=== PATIENT | female | born 1970 | race Caucasian/White ===

== ENCOUNTER 2020-03-01 03:17 | Emergency (ER) | payer BC, OTHER ==
[~2020-03-01] VITALS: Ht 162.6 cm; Wt 74.8 kg
[~2020-03-01 03:17] MED LIST: IBUPROFEN 600600 M1 PO; PHENTERMINE H37.5 MG PO; TOPAMAX 25 MG T25 M1 PO
[2020-03-01 03:48] LABS: MCHC 33.1 g/dL (28.0-37.0); NUCLEATED RBCS 0 /100WBC; WBC 2.1 thou/uL (4.0-11.0)
[2020-03-01 03:50] LABS: ABSOLUTE MONOCYTES 0.1 thou/uL (0.0-1.2); BASOPHILS 0.5 %; EOSINOPHILS 0.1 %; HEMATOCRIT 34.1 % (37.0-47.0); HEMOGLOBIN 11.3 gm/dL (12.0-15.0); LYMPHOCYTES 49.4 %; MCH 27.9 pg (26.0-34.0); MCV 84.2 fL (80.0-100.0); MONOCYTES 4.9 %; MPV 7.7 fl. (7.2-11.1); PLATELET COUNT* 139 thou/uL (150-400); POLYS 45.1 %; RBC 4.06 mil/uL (4.20-5.00); RDW-CV 12.7 % (10.5-14.5)
[2020-03-01 03:58] LABS: APTT 31.8 Seconds (25.0-31.3); CALCIUM 7.5 mg/dL (8.5-10.1); CREATININE 0.6 mg/dL (0.6-1.3); INR 0.9; POTASSIUM 3.5 mmol/L (3.5-5.1)
[2020-03-01 04:08] LABS: ALBUMIN 3.5 g/dL (3.4-5.0); TOTAL BILIRUBIN 0.1 mg/dL (<0.1-1.0); TOTAL PROTEIN 6.6 g/dL (6.4-8.2)
[2020-03-01] MEDS ORDERED: ZOFRAN ODT4 MG PO (05:27)
[2020-03-01 06:35] VITALS: BP 94/55
== END 2020-03-01 06:35 | disposition home or self-care (01) ==
LOC: M.ERS 03:17
PROVIDERS: Personal Emergency Response Attendant
DX: U07.1 COVID-19 (principal); R11.0 Nausea; R07.9 Chest pain, unspecified

== ENCOUNTER 2020-03-04 17:10 | Inpatient (IN) | payer OTHER, BC ==
[~2020-03-04] VITALS: Ht 165.1 cm; Wt 80.3 kg
[~2020-03-04 17:10] MED LIST changes: +ZOFRAN ODT4 MG PO
[2020-03-04 17:31] VITALS: BP 86/51
[2020-03-04 17:35] LABS: ABSOLUTE LYMPHOCYTES 1.7 thou/uL (0.8-5.3); ABSOLUTE MONOCYTES 0.4 thou/uL (0.0-1.2); ABSOLUTE NEUTROPHILS 2.9 thou/uL (1.6-8.1); BASOPHILS 0.2 %; EOSINOPHILS 0.3 %; HEMATOCRIT 32.8 % (37.0-47.0); HEMOGLOBIN 10.8 gm/dL (12.0-15.0); LYMPHOCYTES 33.4 %; MCV 84.8 fL (80.0-100.0); MONOCYTES 8.3 %; MPV 7.4 fl. (7.2-11.1); NUCLEATED RBCS 0 /100WBC; PLATELET COUNT* 235 thou/uL (150-400); POLYS 57.8 %; RBC 3.87 mil/uL (4.20-5.00); RDW-CV 12.6 % (10.5-14.5); WBC 5.1 thou/uL (4.0-11.0)
[2020-03-04 17:50] LABS: APTT 28.5 Seconds (25.0-31.3); CALCIUM 8.2 mg/dL (8.5-10.1); CREATININE 0.7 mg/dL (0.6-1.3); POTASSIUM 3.4 mmol/L (3.5-5.1); PROTIME 9.7 Seconds (9.20-11.50)
[2020-03-04 17:54] LABS: INR < 0.9
[2020-03-04 18:01] LABS: ALBUMIN 3.1 g/dL (3.4-5.0); TOTAL BILIRUBIN 0.3 mg/dL (<0.1-1.0); TOTAL PROTEIN 6.3 g/dL (6.4-8.2)
[2020-03-04 19:43] VITALS: BP 99/66
[2020-03-04 20:00] VITALS: BP 120/69
[2020-03-05] VITALS (7 sets, daily range): BP systolic 108–129; BP diastolic 63–76
--- NOTE | 2020-03-05 09:00 | EKG ---
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
[2020-03-05 11:11] LABS: ABSOLUTE LYMPHOCYTES 0.6 thou/uL (0.8-5.3); ABSOLUTE MONOCYTES 0.1 thou/uL (0.0-1.2); ABSOLUTE NEUTROPHILS 2.8 thou/uL (1.6-8.1); BASOPHILS 0.1 %; HEMATOCRIT 34.9 % (37.0-47.0); HEMOGLOBIN 11.6 gm/dL (12.0-15.0); LYMPHOCYTES 17.3 %; MCH 27.9 pg (26.0-34.0); MCHC 33.2 g/dL (28.0-37.0); MCV 84.1 fL (80.0-100.0); MONOCYTES 2.6 %; MPV 7.3 fl. (7.2-11.1); NUCLEATED RBCS 0 /100WBC; PLATELET COUNT* 266 thou/uL (150-400); RBC 4.15 mil/uL (4.20-5.00); RDW-CV 12.4 % (10.5-14.5); WBC 3.5 thou/uL (4.0-11.0)
[2020-03-05 11:28] LABS: ALBUMIN 3.2 g/dL (3.4-5.0); ALKALINE PHOSPHATASE 137 U/L (46-116); ANION GAP 6 mmol/L (7-16); BUN 5 mg/dL (7-18); CALCIUM 8.3 mg/dL (8.5-10.1); CHLORIDE 99 mmol/L (98-107); CO2 34 mmol/L (21-32); CREATININE 0.6 mg/dL (0.6-1.3); GLUCOSE 189 mg/dL (70-99); POTASSIUM 3.8 mmol/L (3.5-5.1); SGOT 51 U/L (15-37); SGPT 63 U/L (30-65); SODIUM 139 mmol/L (136-145); TOTAL BILIRUBIN 0.3 mg/dL (<0.1-1.0); TOTAL PROTEIN 6.8 g/dL (6.4-8.2); TROPONIN-I LEVEL <0.06 ng/mL (<0.06)
--- NOTE | 2020-03-05 15:30 | NUR ---
SPOKE WITH PT.ON PHONE IN ROOM, DUE TO POSITJIM COVKEO 18. LIVES WITH HER , WHO IS SUPPORTIVE. HER CHILDREN ARE ALSO SUPPORTIVE. 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 NO DME OR HX OF HH. SHE IS ON 1-2L OF O2/NC. PULMONARY CONSULT ORDERED. CM WILL FOLLOW.
--- NOTE | 2020-03-05 17:14 | NUR ---
A&OX 4, PWD. LUNGS CLEAR UPPER LOBES AND RALES NOTED IN RIGHT LOWER LOBES. LEFT UPPER AND LOWER LOBES CLEAR. HEART TONES REGULAR. MONITOR SHOWS SR/SB. ON 02 AT 1L PER NC. 02 SAT 95-97%. +BS X 4 QUADS, PEDAL PULSES PRESENT NO EDEMA NOTED. HAD BM THIS AM PER PT. SL LEFT HAND AND LEFT AC. PT WAS GIVEN FFP'S THIS AM. PT HAS BEEN VERY ANXIOUS THIS SHIFT AND MEDICATION OBTAINED AND GIVEN FOR ANXIETY. PT WAS ABLE TO SLEEP THIS AFTERNOON. AND TWIN SISTER CALLED TO CHECK UP ON PT THROUGHTOUT DAY. NO C/O AT THIS TIME. WILL CONTINUE TO MONITOR.
[2020-03-06] VITALS: BP 101/50
[2020-03-06 04:00] VITALS: BP 93/59
[2020-03-06 05:54] LABS: ABSOLUTE LYMPHOCYTES 0.9 thou/uL (0.8-5.3); ABSOLUTE MONOCYTES 0.4 thou/uL (0.0-1.2); ABSOLUTE NEUTROPHILS 5.3 thou/uL (1.6-8.1); BASOPHILS 0.1 %; HEMATOCRIT 33.4 % (37.0-47.0); HEMOGLOBIN 11.3 gm/dL (12.0-15.0); LYMPHOCYTES 13.9 %; MCH 28.3 pg (26.0-34.0); MCHC 33.9 g/dL (28.0-37.0); MCV 83.5 fL (80.0-100.0); MONOCYTES 6.4 %; MPV 7.3 fl. (7.2-11.1); NUCLEATED RBCS 0 /100WBC; PLATELET COUNT* 336 thou/uL (150-400); POLYS 79.6 %; RBC 3.99 mil/uL (4.20-5.00); RDW-CV 12.5 % (10.5-14.5); WBC 6.7 thou/uL (4.0-11.0)
[2020-03-06 06:17] LABS: ALBUMIN 3.3 g/dL (3.4-5.0); CALCIUM 8.2 mg/dL (8.5-10.1); CREATININE 0.6 mg/dL (0.6-1.3); MAGNESIUM 2.5 mg/dL (1.8-2.4); POTASSIUM 3.6 mmol/L (3.5-5.1); TOTAL BILIRUBIN 0.3 mg/dL (<0.1-1.0); TOTAL PROTEIN 7.1 g/dL (6.4-8.2)
[2020-03-06 08:00] VITALS: BP 107/70
[2020-03-06 12:00] VITALS: BP 97/57
--- NOTE | 2020-03-06 12:00 | NUR ---
STABLE TODAY. ON ROOM AIR. DISCUSSED AT [place], PT.REMAINS ON IV MEDS. NO O2. CXR NO ACUTE PROCESS. ANTICIPATE DISCHARGE IN 1-2 DAYS.
[2020-03-06 20:59] VITALS: BP 110/70
[2020-03-07] VITALS (7 sets, daily range): BP systolic 101–125; BP diastolic 61–73
--- NOTE | 2020-03-07 05:19 | NUR ---
PT IS ABLE TO COMMUNICATE HER NEEDS TO STAFF EFFECTIVELY. SHE HAS DENIED THE NEED FOR PAIN MEDICATION UP TO THIS TIME. POSSIBLE DISCHARGE TODAY. SHE REMAINS UP AD SURY AND ON ROOM AIR AT THIS TIME.
[2020-03-07] MEDS ORDERED: DEXAMETHASONE1 MG PO (12:12)
[2020-03-07] MEDS ORDERED: PROTONIX40 M4 PO (12:12)
[2020-03-07] MEDS ORDERED: DOXYCYCLINE 10100 MG PO (12:12)
--- NOTE | 2020-03-07 13:20 | NUR ---
PT A&OX4 VSS. PT REMAINS +COVID. PT ON RROM AIR, SAT 94% AND GREATER. PT SINUS/EBER ON MONITOR. IV TO LAC PATENT, DC'D PRIOR TO PT LEAVING UNIT. NO REDNESS/SWELLING/BLEEDING OBSERVED AT SITE. PT UP AD SURY, GAIT STEADY. PT STATES UNDERSTANDING OF DC INSTRUCITONS AND ISOLATION EDUCATION DISCUSSED. PT LEAVES WITH PRINTED MATERIALS AND RX WELL. PT DRESSED INDEPENDENTLY, NO DIFFICULTY. PT LEFT UNIT IN WC TRANSPORTED BY NURSING STAFF.
--- NOTE | 2020-03-09 14:43 | CON ---
[address] [address] CONSULTATION Name: LUIZ ESCALANTE Room: [address] IN ..#: [id number] Admission: 03/04/20 Attend Phys: Ciarra Mayorga MD Discharge: 03/07/20 Date of : 68 Report #: [id number] THIS REPORT FOR: //name// cc: Francisco Javier Luciano MD, Matthew W. MD ~ DATE OF SERVICE: 03/05/2020 REQUESTING PHYSICIAN: Sandro Mcclure MD INDICATION FOR CONSULTATION: COVID-19. HISTORY OF PRESENT ILLNESS: A 49-year-old female with past medical history is as mentioned below. 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 The patient is now admitted with COVID-19. She reports having had chills, palpitations, anxiety as well as cough for the last few days, also had body aches. The patient has required up to 2 liters of oxygen to maintain O2 saturation not below 90s earlier. She was saturating 97% on 1 liter at the time of my evaluation. REVIEW OF SYSTEMS: For 10 points is negative except as mentioned above. PAST MEDICAL HISTORY: No major long-term diseases. Does have a body mass index elevated to 30. SOCIAL HISTORY: No known history of smoking, ethanol abuse or drug abuse. ALLERGIES: No known drug allergies. CURRENT MEDICATIONS: [facility]. HOME MEDICATIONS: Which are not current, past use in [facility] reviewed. FAMILY HISTORY: There is no pertinent family history. PHYSICAL EXAMINATION: GENERAL: She appeared to be anxious, but alert, awake and oriented. VITAL SIGNS: In the records reviewed. NECK: Does not show raised JVP. CHEST: Clear to auscultation. HEART: Regular. No murmur. ABDOMEN: Soft and nontender. LOWER EXTREMITIES: Show no edema, no calf tenderness. LABORATORY DATA: The patient's CTA chest is reviewed and [place] [address] CONSULTATION Name: LUIZ ESCALANTE Room: [address]#: [id number] Admission: 03/04/20 Attend Phys: Ciarra Mayorga MD Discharge: 03/07/20 Date of : 68 Report #: [id number] consistent with COVID-19. The patient's lab work is in [facility]. This was reviewed. Elevation in LFTs is noted. ASSESSMENT/PLAN: 1. COVID-19. I agree with steroids as well as convalescent plasma as already ordered. I adjusted the steroid dose. I recommend watching the patient very closely should there be any deterioration. I recommend having a very low threshold of starting remdesivir. I recommend watching LFTs closely. 2. Pulmonary infiltrates. She may have secondary bacterial infection as well. I agree with antibiotics as currently ordered. 3. Deep venous thrombosis prophylaxis, Lovenox. 4. Clostridium difficile prophylaxis, Florastor. Thanks for this consultation. <ELECTRONICALLY SIGNED> By: Edd Chase MD 03/09/20 1443 1938 Ajoe Chase MD /nt
== END 2020-03-07 13:20 | disposition home or self-care (01) | DRG 177 ==
LOC: M.ERS 17:10 → M.TBA-ER 18:23 → M.ORTHSURG 18:23
PROVIDERS: Family Medicine; Internal Medicine; ADMIT Internal Medicine; ATTEND Internal Medicine
PROC: XW13325 Transfusion of Convalescent Plasma (Nonautologous) into Peripheral Vein, Percutaneous Approach, New Technology Group 5 (ICD-10-PCS; principal; 2020-03-05)
DX: U07.1 COVID-19 (principal); J12.89 Other viral pneumonia; J96.00 Acute respiratory failure, unspecified whether with hypoxia or hypercapnia; R65.10 Systemic inflammatory response syndrome (SIRS) of non-infectious origin without acute organ dysfunction; R79.89 Other specified abnormal findings of blood chemistry; F10.11 Alcohol abuse, in remission; F19.10 Other psychoactive substance abuse, uncomplicated; F41.9 Anxiety disorder, unspecified; Z79.899 Other long term (current) drug therapy